=== PATIENT | male | born 1985 | race Caucasian/White ===

== ENCOUNTER 2018-01-13 20:16 | Emergency (ER) | payer OTHER ==
[~2018-01-13] VITALS: Ht 165.1 cm; Wt 78.0 kg
[~2018-01-13 20:16] MED LIST: ONDA4TAB7 SL
[2018-01-13 20:18] VITALS: TEMP 36.9; Ht 165.1 cm; Wt 78.0 kg
[2018-01-13] MEDS ORDERED: AZEL30SP NAE (20:54)
[2018-01-13] MEDS ORDERED: PSEU30TA3 PO (20:54)
[2018-01-13] MEDS ORDERED: IBUP-1050 PO (20:54)
--- NOTE | 2018-01-13 20:57 | EMERGENCY ROOM VISIT NOTE ---
History First contact with patient: 20:35 Chief Complaint: VOMITING Stated Complaint: VOMITING,DIZZY History of Present Illness The patient is a 32 year old male who presents to the Emergency Room with complaints of acute onset of nausea vomiting and diarrhea this afternoon. Patient states he felt nauseous earlier in the day, and started having vomiting around 4 PM. Patient states it has been "nonstop". Patient denies any blood in the emesis. States he has intense intermittent abdominal cramping, worse just before he vomits. Patient states he has only a few small episodes of diarrhea, no blood in the stool. Patient has had subjective fevers and chills, did not take his temperature at home. Of note patient's was ill yesterday with "stomach flu", but was better today. Patient's at bedside also states that their son started daycare this past week but has not been sick. No other recent travel, no medication changes, no dietary changes. Patient with no prior history of GI problems. Patient states he has not been able to keep "anything" down since all this started. Review of Systems See HPI for pertinent positives & negatives. A total of 10 systems reviewed and were otherwise negative. Past Medical/Surgical History See HPI for pertinent positives & negatives. A total of 10 systems reviewed and were otherwise negative. Social History Smoking Status: Never Smoker Alcohol Use: none Drug Use: none Marital Status: Housing Status: lives with significant other Occupation Status: employed Current/Historical Medications Scheduled PRN Azelastine Hcl-Fluticasone Pro (Dymista), 1 SPRY MAYNOR BID PRN for CONGESTION Ibuprofen (Advil), 200-600 MG PO Q4H PRN for Pain or Fever Pseudoephedrine Hcl (Sudafed Nasal Decongestan), 2 TAB PO Q6 PRN for CONGESTION Physical Exam Vital Signs Date Time Temp Pulse Resp B/P (MAP) Pulse Ox O2 Delivery O2 Flow Rate FiO2 01/13/18 23:49 114 20 111/62 96 01/13/18 23:09 121 16 110/58 97 Room Air 01/13/18 21:47 94 16 100/66 99 Room Air 01/13/18 20:18 36.9 126 28 132/41 100 Room Air Physical Exam GENERAL: alert, ill appearing, well nourished, mild distress, non-toxic EYE EXAM: normal conjunctiva, PERRL and EOM's grossly intact OROPHARYNX: no exudate, no erythema, lips, buccal mucosa, and tongue normal and mucous membranes are dry NECK: supple, no nuchal rigidity, no adenopathy, non-tender LUNGS: Clear to auscultation. Normal chest wall mechanics, no w/r/r HEART: no murmurs, S1 normal and S2 normal ABDOMEN: abdomen soft, mild generalized discomfort, normo-active bowel sounds, no masses, no rebound or guarding. BACK: Back is symmetrical on inspection and there is no deformity, no midline tenderness, no CVA tenderness. SKIN: no rashes and no bruising, no petechiae UPPER EXTREMITIES: upper extremities are grossly normal. LOWER EXTREMITIES: No pitting edema. NEURO EXAM: Normal sensorium, cranial nerves II-XII grossly intact, normal speech, no gross weakness of arms, no gross weakness of legs. Gross sensation intact. Medical Decision & Procedures ER Provider Diagnostic Interpretation: [~ rep ct add3]] KUB CLINICAL HISTORY: 32 years-old Male presenting with n/v/d. TECHNIQUE: Single supine view of the abdomen was obtained. COMPARISON: None. FINDINGS: Nonobstructive bowel gas pattern. No gross pneumoperitoneum. Allowing for bowel gas and stool, no calcifications to suggest nephrolithiasis. Multiple pelvic phleboliths. Osseous structures normal. Lung bases clear. IMPRESSION: 1. No acute intra-abdominal pathology. Electronically signed by: Zenon Stark M.D. 01/13/2018 9:28 PM Dictated Date/Time: 01/13/2018 9:27 PM Laboratory Results 01/13/18 20:32 Red Blood Count 5.30, Mean Corpuscular Volume 85.3, Mean Corpuscular Hemoglobin 30.6, Mean Corpuscular Hemoglobin Concent 35.8, Mean Platelet Volume 10.0, Neutrophils (%) (Auto) 88.5, Lymphocytes (%) (Auto) 5.5, Monocytes (%) (Auto) 5.3, Eosinophils (%) (Auto) 0.4, Basophils (%) (Auto) 0.1, Neutrophils # (Auto) 10.37, Lymphocytes # (Auto) 0.65, Monocytes # (Auto) 0.62, Eosinophils # (Auto) 0.05, Basophils # (Auto) 0.01 01/13/18 20:32 Test 01/13/18 20:32 White Blood Count 11.72 K/uL (4.8-10.8) Red Blood Count 5.30 M/uL (4.7-6.1) Hemoglobin 16.2 g/dL (14.0-18.0) Hematocrit 45.2 % (42-52) Mean Corpuscular Volume 85.3 fL (80-100) Mean Corpuscular Hemoglobin 30.6 pg (25-34) Mean Corpuscular Hemoglobin Concent 35.8 g/dl (32-36) Platelet Count 246 K/uL (130-400) Mean Platelet Volume 10.0 fL (7.4-10.4) Neutrophils (%) (Auto) 88.5 % Lymphocytes (%) (Auto) 5.5 % Monocytes (%) (Auto) 5.3 % Eosinophils (%) (Auto) 0.4 % Basophils (%) (Auto) 0.1 % Neutrophils # (Auto) 10.37 K/uL (1.4-6.5) Lymphocytes # (Auto) 0.65 K/uL (1.2-3.4) Monocytes # (Auto) 0.62 K/uL (0.11-0.59) Eosinophils # (Auto) 0.05 K/uL (0-0.5) Basophils # (Auto) 0.01 K/uL (0-0.2) RDW Standard Deviation 38.3 fL (36.4-46.3) RDW Coefficient of Variation 12.4 % (11.5-14.5) Immature Granulocyte % (Auto) 0.2 % Immature Granulocyte # (Auto) 0.02 K/uL (0.00-0.02) Anion Gap 9.0 mmol/L (3-11) Est Creatinine Clear Calc Drug Dose 74.9 ml/min Estimated GFR () 78.3 Estimated GFR (Non- 67.5 BUN/Creatinine Ratio 15.0 (10-20) Calcium Level 8.8 mg/dl (8.5-10.1) Total Bilirubin 0.7 mg/dl (0.2-1) Aspartate Amino Transf (AST/SGOT) 23 U/L (15-37) Alanine Aminotransferase (ALT/SGPT) 47 U/L (12-78) Alkaline Phosphatase 72 U/L (45-117) Total Protein 8.3 gm/dl (6.4-8.2) Albumin 4.5 gm/dl (3.4-5.0) Globulin 3.8 gm/dl (2.5-4.0) Albumin/Globulin Ratio 1.2 (0.9-2) Lipase 79 U/L (73-393) Medications Administered Medications (Trade) Dose Ordered Sig/Wenceslao Route Start Time Stop Time Status Last Admin Dose Admin Ondansetron HCl (Zofran Inj) 4 mg STK-MED ONCE .ROUTE 01/13/18 21:02 01/13/18 21:03 DC 01/13/18 21:04 4 MG Sodium Chloride 1,000 ml @ 999 mls/hr Q1H1M STAT IV 01/13/18 21:17 01/13/18 22:17 DC 01/13/18 21:19 999 MLS/HR Sodium Chloride 1,000 ml @ 999 mls/hr Q1H1M STAT IV 01/13/18 21:48 01/13/18 22:48 DC 01/13/18 22:13 999 MLS/HR Ketorolac Tromethamine (Toradol Inj) 30 mg NOW STAT IV 01/13/18 22:00 01/13/18 22:02 DC 01/13/18 22:14 30 MG Ondansetron HCl (Zofran Inj) 4 mg NOW STAT IV 01/13/18 22:50 01/13/18 22:51 DC 01/13/18 23:08 4 MG Ondansetron HCl (ZOFRAN ODT 4MG Home Pack) 1 homepack UD ONCE PO 01/13/18 23:45 01/13/18 23:46 DC 01/13/18 23:46 1 HOMEPACK ED Course 2145: Patient states nausea slightly improved, heart rate mildly less tachycardic, however patient still ill-appearing. 2243: Pt resting, 2nd L IVF running. 2330: Pt reports feeling improved. Able to tolerate sips po and crackers without any recurrent symptoms. Medical Decision Additional history obtained from the family. The patient's history was concerning for nausea, vomiting, diarrhea, and abdominal pain. Differential diagnosis: Etiologies such as gastroenteritis, food borne illness, infections, appendicitis , diverticulitis, inflammatory bowel disease, obstruction, GI bleed, biliary pathology, as well as others were entertained. Patient markedly improved here following nausea medication and 2 L of IV fluids. Patient likely with same GI illness as his had yesterday. Following medication and rest patient able to tolerate p.o. here without recurrent symptoms or difficulty. Patient hemodynamically stable throughout, and initial tachycardia which is likely secondary to dehydration, abdominal cramping, and anxiety resolved with medications and IV fluids. Patient with no recurrent abdominal pain. Patient's abdominal exam was soft nontender throughout his stay. Patient's labs and imaging reassuring. Mild leukocytosis likely secondary to vomiting. I do not suspect bacteremia/sepsis, perforation, GI bleed, bowel obstruction, colitis, vascular etiology. I do not suspect other cardiopulmonary pathology for the patient's vomiting. I do not suspect any intracranial pathology for the patient's vomiting. Patient with normal nonfocal neuro exam at bedside. Patient well-appearing at discharge, ambulating with a steady gait, reportedly felt improved, discussed diet and hydration, use of nausea medication at home, symptoms to watch and return for, he verbalized understanding was agreeable with plan. Medication Reconcilliation Current Medication List: was personally reviewed by me Blood Pressure Screening Patient's blood pressure: Normal blood pressure Impression Primary Impression: Nausea, vomiting, and diarrhea Additional Impressions: Abdominal pain Dehydration Departure Information Dispostion Home / Self-Care Condition GOOD Referrals No Doctor, Assigned (PCP) Patient Instructions [facility] Additional Instructions Please rest and sip clear liquids at frequent intervals to stay well-hydrated. You may use the nausea medication as prescribed. If you have any recurrent or persistent vomiting, develop worsening diarrhea, noticed blood in your vomit or stools, develop fevers or chills, increased weakness, passing out, abdominal pain, or you have any other new concerns, please return the emergency room. Problem Qualifiers Additional Impressions: Abdominal pain Abdominal location: generalized Qualified Codes: R10.84 - Generalized abdominal pain
[2018-01-13] MEDS ORDERED: ONDANSETRON INJ 2 MG/ML 2 ML VIAL ONE (21:02)
[2018-01-13 21:11] LABS: BASO % 0.1 %; BASO ABS # 0.01 K/uL (0-0.2); EOS % 0.4 %; EOS ABS # 0.05 K/uL (0-0.5); HEMATOCRIT 45.2 % (42-52); HEMOGLOBIN 16.2 g/dL (14.0-18.0); IG# 0.02 K/uL (0.00-0.02); LYMPH % 5.5 %; LYMPH ABS # 0.65 K/uL (1.2-3.4); MEAN CELL VOLUME 85.3 fL (80-100); MEAN CORPUSCULAR HEMOGLOBIN 30.6 pg (25-34); MEAN CORPUSCULAR HGB CONC 35.8 g/dl (32-36); MONO % 5.3 %; MONO ABS # 0.62 K/uL (0.11-0.59); NEUT % 88.5 %; NEUT ABS # 10.37 K/uL (1.4-6.5); PLATELET COUNT 246 K/uL (130-400); RED CELL DISTRIBUTION WIDTH CV 12.4 % (11.5-14.5); RED CELL DISTRIBUTION WIDTH SD 38.3 fL (36.4-46.3); WHITE BLOOD COUNT 11.72 K/uL (4.8-10.8)
[2018-01-13] MEDS ORDERED: SODIUM CHLORIDE 0.9% 1000ML 1,000 ML IV STA ×2 (21:17→21:48)
[2018-01-13 21:18] LABS: ALBUMIN 4.5 gm/dl (3.4-5.0); CALCIUM 8.8 mg/dl (8.5-10.1); CREATININE 1.39 mg/dl (0.60-1.40); POTASSIUM 3.8 mmol/L (3.5-5.1)
[2018-01-13 21:21] LABS: TOTAL PROTEIN 8.3 gm/dl (6.4-8.2)
--- NOTE | 2018-01-13 21:29 | DIAGNOSTIC IMAGING REPORT ---
KUB CLINICAL HISTORY: 32 years-old Male presenting with n/v/d. TECHNIQUE: Single supine view of the abdomen was obtained. COMPARISON: None. FINDINGS: Nonobstructive bowel gas pattern. No gross pneumoperitoneum. Allowing for bowel gas and stool, no calcifications to suggest nephrolithiasis. Multiple pelvic phleboliths. Osseous structures normal. Lung bases clear. IMPRESSION: 1. No acute intra-abdominal pathology. Electronically signed by: Zenon Stark M.D. 01/13/2018 9:28 PM Dictated Date/Time: 01/13/2018 9:27 PM
[2018-01-13] MEDS ORDERED: NURSING VERBAL MED ORDER ONE (21:30)
[2018-01-13] MEDS ORDERED: KETOROLAC TROMETHAMINE 30 MG/ML VIAL IV STA (22:00)
[2018-01-13] MEDS ORDERED: ONDANSETRON INJ 2 MG/ML 2 ML VIAL IV STA (22:50)
[2018-01-13] MEDS ORDERED: ONDANSETRON HOME PACK 4MG OD TAB PO ONE (23:45)
[2018-01-13 23:49] VITALS: BP 111/62; PULSE 114; O2SAT 96
== END 2018-01-13 23:50 | disposition home or self-care (01) ==
LOC: C.EDB 20:17 → C.EDA 23:50
DX: R11.2 Nausea with vomiting, unspecified (principal); R19.7 Diarrhea, unspecified; R10.84 Generalized abdominal pain; E86.0 Dehydration